=== PATIENT | female | born 1975 | race American Indian/Alaskan Native ===

== ENCOUNTER 2017-10-28 14:36 | Emergency (ER) | payer OTHER ==
[2017-10-28 15:38] VITALS: BP 115/77; PULSE 74; RESP 18; TEMP 98.4; O2SAT 99
[2017-10-28] MEDS ORDERED: Oxycodone/Acetaminophen 5/325 mg Tab PO STA (16:45)
[2017-10-28] MEDS ORDERED: Oxycodone/Acetaminophen 5/325 mg Tab ONE (16:59)
--- NOTE | 2017-10-28 17:41 | ED PDOC ---
Lower Extremity Pain/Injury Time Seen by Provider: 10/28/17 15:56 Chief Complaint (Nursing): Lower Extremity Problem/Injury Chief Complaint (Provider): Chronic knee pain History Per: Patient History/Exam Limitations: no limitations Onset/Duration Of Symptoms: Persistent Current Symptoms Are (Timing): Still Present Additional History Per: Patient Additional Complaint(s): 42yo female with history of 2xs right knee surgery due to menisceal injury, presents to ED for evaluation of right knee pain. Patient states she had her knee surgeries in 1999 and 2009 and was following up with an orthopedist who has now retired. Patient reports in 2009, she was recommended a full knee replacement by her orthopedist which she had refused. Patient states she now has been considering a knee replacement and called Dr. Umaña (was referred there by her insurance) and was instructed to come to ER for evaluation. She denies any weakness, numbness, tingling, injury or trauma. She has no other medical complaints. Past Medical History Reviewed: Historical Data, Nursing Documentation, Vital Signs Vital Signs: Last Vital Signs Temp 98.4 F 10/28/17 15:35 Pulse 74 10/28/17 15:35 Resp 18 10/28/17 15:35 BP 115/77 10/28/17 15:35 Pulse Ox 99 10/28/17 15:35 - Medical History PMH: No Chronic Diseases - Surgical History Surgical History: No Surg Hx - Family History Family History: States: No Known Family Hx - Allergies Allergies/Adverse Reactions: Allergies Allergy/AdvReac Type Severity Reaction Status Date / Time No Known Allergies Allergy Verified 10/28/17 15:35 Review of Systems ROS Statement: Except As Marked, All Systems Reviewed And Found Negative Constitutional: Negative for: Fever, Chills Musculoskeletal: Positive for: Other (knee pain) Neurological: Negative for: Weakness, Numbness Physical Exam - Reviewed Nursing Documentation Reviewed: Yes Vital Signs Reviewed: Yes - Physical Exam Comments: GENERAL APPEARANCE: Patient is awake, alert, oriented x 3, in moderate painful distress. SKIN: Warm, dry; (-) cyanosis. EXTREMITIES: (+) mild tenderness right knee, (+) FROM, (-) deformity, (-) edema. NEURO AND PSYCH: Mental status as above. Intact sensation bilaterally; normal strength in extension of the knees, plantar and dorsiflexion of the toes. DTRs symmetric. - ECG O2 Sat by Pulse Oximetry: 99 (RA) Pulse Ox Interpretation: Normal Medical Decision Making Medical Decision Making: Impression: Knee pain Plan: -- Case discussed with Dr. Umaña who suggests outpatient follow up on Friday at his office. Patient instructed to keep taking OTC NSAIDS for pain relief. Stable for discharge home. Patient states she fully agrees with and understands discharge instructions. States that she agrees with the plan and disposition. Verbalized and repeated discharge instructions and plan. I have given the patient opportunity to ask any additional questions. Scribe Attestation: Documented by Paola Sanchez acting as a scribe for FIORELLA Lawson Provider Attestation: All medical record entries made by the Scribe were at my direction and personally dictated by me. I have reviewed the chart and agree that the record accurately reflects my personal performance of the history, physical exam, medical decision making, and the department course for this patient. I have also personally directed, reviewed, and agree with the discharge instructions and disposition. Disposition - Clinical Impression Clinical Impression: Knee pain - Patient ED Disposition Is Patient to be Admitted: No Counseled Patient/Family Regarding: Diagnosis, Need For Followup - Disposition Referrals: Jimi Umaña III, MD [Staff Provider] - Disposition: Routine/Home Disposition Time: 17:30 Condition: STABLE Additional Instructions: Follow up with Dr. Umaña in 2-3 days without fail. Continue taking NSAIDS otc prn for pain. 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
== END 2017-10-28 17:45 | disposition home or self-care (01) ==
LOC: H.ER 14:36
DX: M25.561 Pain in right knee (principal)